=== PATIENT | male | born 1980 | race Caucasian/White ===

== ENCOUNTER 2023-09-05 01:02 | Emergency (ER) | payer SELFPAY ==
--- NOTE | 2023-09-05 01:20 | EDPHYS ---
Physician Documentation [facility] Name: Xiang Adams Age: 43 yrs Sex: Male : 1980 Arrival Date: 09/05/2023 Time: 01:02 Bed 7 Private MD: ED Physician Carlito Novak HPI: 09/04 01:48 This 43 yrs old Male presents to ER via Ambulatory with complaints of Abscess. rt 01:48 Patient presents to the ED with about 3 days of reported abscess to the right thigh rt proximal to the knee. Patient states that yesterday, he squeezed some pus out of it but reports continued swelling, pain to the area. Denies other acute complaints at this time, symptoms are mild in severity, no other aggravating or alleviating factors.. Historical: - Home Meds: 01:23 lisinopril 20 mg Oral tab 1 tab once daily [Active]; hydrochlorothiazide Oral [Active]; rg5 - PMHx: 01:23 Anxiety; Hypertension; rg5 - Immunization history:: Adult Immunizations up to date, Client reports receiving the 1st dose of the Covid vaccine. - Infectious Disease History:: Denies. - Social history:: Smoking status: Patient reports the use of cigarette tobacco products, smokes one pack cigarettes per day. - Family history:: not pertinent. ROS: 01:48 Constitutional: Negative for fever, chills, and weight loss, Cardiovascular: Negative rt for chest pain, palpitations, and edema, Respiratory: Negative for shortness of breath, cough, wheezing, and pleuritic chest pain, Abdomen/GI: Negative for abdominal pain, nausea, vomiting, diarrhea, and constipation, Neuro: Negative for headache, weakness, numbness, tingling, and seizure, 01:48 Skin: Positive for abscess, cellulitis, Exam: 01:48 Constitutional: This is a well developed, well nourished patient who is awake, alert, rt and in no acute distress. Head/Face: Normocephalic, atraumatic. Neuro: Awake and alert, GCS 15, oriented to person, place, time, and situation. Cranial nerves II-XII grossly intact. Motor strength 5/5 in all extremities. Sensory grossly intact. Cerebellar exam normal. Normal gait. 01:48 Musculoskeletal/extremity: Area of induration proximal to the right knee with surrounding erythema, no obvious fluctuance. Vital Signs: 01:17 BP 167 / 107; Pulse 96; Resp 18; Temp 98.7; Pulse Ox 97% ; Weight 88.45 kg; Height 5 rg5 ft. 8 in. ; Pain 9/10; 01:40 BP 154 / 94; Pulse 88; Resp 17; Pulse Ox 99% ; rg5 01:17 Body Mass Index 29.65 (88.45 kg, 172.72 cm) rg5 01:17 Pain Scale: Adult rg5 Procedures: 01:48 Ultrasound: Type: Skin, performed by the emergency department physician, No drainable rt abscess found on bedside ultrasound. MDM: 01:13 Patient medically screened. rt 01:48 Differential diagnosis: abscess, cellulitis. Data reviewed: vital signs, nurses notes. rt Test considered but Not performed: Labs: No signs of systemic infection, stable vital signs, labs not indicated. Care significantly affected by the following chronic conditions: Hypertension. 01:48 Counseling: I had a detailed discussion with the patient and/or guardian regarding the rt historical points, exam findings, and any diagnostic results supporting the discharge/admit diagnosis, the need for outpatient follow up, to return to the emergency department if symptoms worsen or persist or if there are any questions or concerns that arise at home. ED course: Patient able to bend knee without difficulties. No signs or symptoms to suggest a septic arthritis.. Administered Medications: 01:43 Drug: Doxycycline PO 100 mg PO once Route: PO; rg5 01:43 Follow up: Response: No adverse reaction rg5 Disposition Summary: 09/05/23 01:20 Discharge Ordered Notes: Location: Home rt Problem: new rt Symptoms: are unchanged rt Condition: Stable rt Diagnosis - Cellulitis to right lower extremity rt Followup: rt - With: Private Physician - When: 2 - 3 days - Reason: Discharge Instructions: - Discharge Summary Sheet rt - Cellulitis, Adult rt Forms: - Medication Reconciliation Form rt - Antibiotic Education rt - Prescription Opioid Use rt - Patient Portal Instructions rt - Leadership Thank You Letter rt Prescriptions: - Doxycycline Hyclate 100 mg Oral Tablet - take 1 tablet ORAL route every 12 hours; 20 tablet; Refills: 0, Product rt Selection Permitted Signatures: Carlito Novak MD MD rt Joselito Christian RN RN rg5
[2023-09-05] MEDS ORDERED: DOXYCYCLINE 100 MG CAP PO ONE (01:34)
--- NOTE | 2023-09-05 01:44 | ER ---
Nurse's Notes [facility] Name: Xiang Adams Age: 43 yrs Sex: Male : 1980 Arrival Date: 09/05/2023 Time: :02 Bed 7 Private MD: Diagnosis: Cellulitis to right lower extremity Presentation: 09/04 01:17 Chief complaint: Patient states: wake up yesterday with an insect bite on his right rg5 knee and had taken tylenol 500 mg tab \T\ benaryl for pain PATROLLER. Coronavirus screen: Vaccine status: Patient reports receiving the 1st dose of the Covid vaccine. Client denies travel out of the [place] in the last 14 days. Ebola Screen: Patient negative for fever greater than or equal to 101.5 degrees Fahrenheit, and additional compatible Ebola Virus Disease symptoms. Initial Sepsis Screen: Does the patient meet any 2 criteria? No. Patient's initial sepsis screen is negative. Does the patient have a suspected source of infection? No. Patient's initial sepsis screen is negative. Risk Assessment: Do you want to hurt yourself or someone else? Patient reports no desire to harm self or others. Onset of symptoms was September 04, 2023. 01:17 Method Of Arrival: Ambulatory rg5 01:17 Acuity: GURPREET 4 rg5 Triage Assessment: 01:23 General: Appears in no apparent distress. comfortable, Behavior is calm, cooperative, rg5 appropriate for age. Pain: Complains of pain in right quadriceps Pain does not radiate. Pain currently is 9 out of 10 on a pain scale. Quality of pain is described as aching, Pain began 4 hours ago. Is continuous. Neuro: Level of Consciousness is awake, alert, obeys commands, Oriented to person, place, time, situation. Cardiovascular: Capillary refill < 3 seconds. Respiratory: Airway is patent Trachea midline Respiratory effort is even, relaxed. GI: Abdomen is round. : No signs and/or symptoms were reported regarding the genitourinary system. Derm:. Musculoskeletal: Range of motion: intact in all extremities. Historical: - Home Meds: 01: lisinopril 20 mg Oral tab 1 tab once daily [Active]; hydrochlorothiazide Oral [Active]; rg5 - PMHx: :23 Anxiety; Hypertension; rg5 - Immunization history:: Adult Immunizations up to date, Client reports receiving the 1st dose of the Covid vaccine. - Infectious Disease History:: Denies. - Social history:: Smoking status: Patient reports the use of cigarette tobacco products, smokes one pack cigarettes per day. - Family history:: not pertinent. Screenin:29 [facility] ED Fall Risk Assessment (Adult) History of falling in the last 3 months, rg5 including since admission No falls in past 3 months (0 pts) Confusion or Disorientation No (0 pts) Intoxicated or Sedated No (0 pts) Impaired Gait No (0 pts) Mobility Assist Device Used No (0 pt) Altered Elimination No (0 pt) Score/Fall Risk Level 0 - 2 = Low Risk. Abuse screen: Denies threats or abuse. Nutritional screening: No deficits noted. Tuberculosis screening: No symptoms or risk factors identified. Vital Signs: 01:17 BP 167 / 107; Pulse 96; Resp 18; Temp 98.7; Pulse Ox 97% ; Weight 88.45 kg; Height 5 rg5 ft. 8 in. ; Pain 9/10; 01:40 BP 154 / 94; Pulse 88; Resp 17; Pulse Ox 99% ; rg5 01:17 Body Mass Index 29.65 (88.45 kg, 172.72 cm) rg5 01:17 Pain Scale: Adult rg5 ED Course: 01:05 Patient arrived in ED. mr 01:05 Carlito Novak MD is Attending Physician. rt 01:17 Joselito Christian, CRYSTAL is Primary Nurse. rg5 01:23 Triage completed. rg5 01:23 Arm band placed on right wrist. rg5 01:29 Patient has correct armband on for positive identification. Bed in low position. Call rg5 light in reach. Side rails up X 1. 01:29 No provider procedures requiring assistance completed. rg5 01:41 Patient did not have IV access during this emergency room visit. rg5 01:42 Provided Education on: post er care done. rg5 Administered Medications: :43 Drug: Doxycycline PO 100 mg PO once Route: PO; rg5 01:43 Follow up: Response: No adverse reaction rg5 Medication: :29 VIS not applicable for this client. rg5 Outcome: 01:20 Discharge ordered by MD. rt 01:41 Discharged to home ambulatory, rg5 01:41 Condition: stable 01:41 Discharge instructions given to patient, Instructed on discharge instructions, Demonstrated understanding of instructions, Prescriptions given X 1, 01:44 Patient left the ED. rg5 Signatures: Monserrat Hernández, Reg Reg mr Carlito Novak MD MD rt Joselito Christian, CRYSTAL RN rg5
[2023-09-05 02:15] VITALS: BP 154/94; TEMP 98.7; O2SAT 99
== END 2023-09-05 01:44 | disposition home or self-care (01) ==
LOC: ER 01:02
DX: L03.115 Cellulitis of right lower limb (principal)
CPT/HCPCS: 99283

== ENCOUNTER 2024-02-27 23:15 | Observation (INO) | payer OTHER, SELFPAY ==
--- OUTSIDE RECORDS SUMMARY | 2024-02-27 23:17 | XMS REPORT | Continuity of Care Document ---
Author Name Unknown Address [address] [facility] [address] [place] [address] [facility] thconnect Address [address] [facility] [place] [address] Care Team Providers Care Cafe Operator Name Role Phone Unavailable Unavailable Unavailable Encounters Start Date/Time End Date/Time Encounter Type Admission Type Attending Clinicians Care Facility Care Department Encounter ID Source 2022-12-27 16:58:03 2022-12-27 16:58:03 Outpatient [facility] SFA [id number] Chinedu Holder 2022-07-11 16:59:29 2022-07-11 16:59:29 Outpatient [facility] SFA [id number] Chinedu Holder 2021-12-05 10:44:03 2021-12-05 10:44:03 Outpatient [facility] SFA [id number] Chinedu Holder
[2024-02-28] MEDS ORDERED: lisinopriL 20 MG TAB ONE (00:02)
[2024-02-28] MEDS ORDERED: NA CHLORIDE 0.9% 1,000 ML ONE (00:02)
[2024-02-28] MEDS ORDERED: HYDRALAZINE HCL 20 MG/ML VIAL ONE (00:02)
[2024-02-28 00:18] LABS: MCH 28.5 pg (27.0-35.0); Nucleated Red Blood Cells % 0.2 % (0-0); Platelets 252 thou/uL (152-406); Red Cell Distribution Width 13.6 % (12.1-15.2)
[2024-02-28 00:20] LABS: PT Prothrombin Time 12.1 SECONDS (9.4-12.5); PTT, Activated Partial Thromb 32.5 SECONDS (24.3-36.9); Protime INR 1.08
[2024-02-28 00:22] LABS: Specific Gravity 1.015 (1.005-1.030); Sqamous Epithelial None Seen /HPF (None Seen); Urine Bacteria None Seen /HPF (<20); Urine Bilirubin NEGATIVE (Negative); Urine Blood Negative (Negative); Urine Clarity Clear (Clear); Urine Color Colorless (Yellow); Urine Culture Reflex Order NOT NEEDED; Urine Glucose NEGATIVE (Negative); Urine Ketones NEGATIVE (Negative); Urine Microscopic Reflex YN ORDER UMIC; Urine Mucus Slight /HPF (None Seen); Urine Nitrite NEGATIVE (Negative); Urine Protein NEGATIVE (Negative); Urine RBC <5 /HPF (None Seen); Urine Urobilinogen Normal (Normal); Urine WBC <5 /HPF (<5)
[2024-02-28 00:22] LABS: Absolute Basophils 0.1 K/uL (0-0.5); Absolute Eosinophils 0.3 K/uL (0-0.5); Absolute Lymphocytes (CBC) 3.7 K/uL (0.7-4.9); Absolute Monocytes 0.8 K/uL (0.1-1.3); Absolute Neutrophil 10.2 K/uL (1.8-8.0); Basophils % 0.4 % (0-1.3); Eosinophils % 1.9 % (0-4.4); Hematocrit 48.1 % (39.6-49.0); Lymphocytes % 24.9 % (15.3-44.8); MCHC 33.2 g/dL (32.0-36.0); MPV 8.2 fL (7.6-11.3); Monocytes % 5.4 % (3.3-12.3); Neutrophils % 67.4 % (41.7-73.7)
[2024-02-28 00:38] LABS: Albumin 3.4 g/dL (3.4-5.0); Albumin/Globulin Ratio 0.8 (1.1-1.8); Anion Gap 5.8 mEq/L (5.0-15.0); Bilirubin Total 0.7 mg/dL (0.2-1.0); Globulin 4.4 g/dL (2.3-3.5); Potassium 3.8 mEq/L (3.5-5.1); Protein, Total 7.8 g/dL (6.4-8.2); Troponin High Sensitivity 27.1 pg/mL (<58.9)
[2024-02-28] MEDS ORDERED: VANCOMYCIN 1 GM/VIAL ONE (01:33)
[2024-02-28] MEDS ORDERED: NA CHLORIDE 0.9% 250 ML ONE (01:34)
--- NOTE | 2024-02-28 01:49 | RAD REPORT ---
EXAMINATION: US UPPER EXTREMITY VEINS LIMITED FOLLOW-UP UNILATERAL INDICATION: Swelling; Pain COMPARISON(S): None. TECHNIQUE: Grayscale and color/spectral Doppler ultrasound of the right upper extremity veins. FINDINGS: There is normal flow and compressibility in the right internal jugular, subclavian, axillary, brachia l , basilic, radial and ulnar veins without intraluminal thrombus. Visualized waveforms demonstrate normal respiratory variability. Right cephalic vein is not visualized. IMPRESSION: 1. No deep venous thrombosis in the right upper extremity. 2. Nonvisualization of right cephalic vein. Electronically signed by: Valentina Perez MD 02/28/2024 01:45 AM [facility] Due to temporary technical issues with the [employer]ACS[employer] reporting system, reports are being signed by the in-house radiologist without review as a courtesy to ensure prompt reporting the interpreting radiologist is fully responsible for the content of the report. Transcribed Date/Time: 02/28/2024 1:49 AM
[2024-02-28] MEDS ORDERED: ACETAMINOPHEN 500 MG TAB ONE (03:50)
--- NOTE | 2024-02-28 03:57 | RAD REPORT ---
EXAM: CT chest angiography with intravenous contrast CLINICAL DATA: 44 years Male Chest pain;SOB. TECHNICAL DATA: Following the administration of intravenous contrast, multiple high-resolution axial images of the ch est were performed followed by sagittal and coronal reconstructed images. Coronal oblique, coronal and sagittal MIP images were also performed. The CT study is performed according to ALARA (as low as reasonably achievable) or ALARA/IMAGE GENTLY, with automatic adjustment of mA and/or kV according to patient size. Performed on: 02/28/2024 at 2:02 AM COMPARISONS: Chest x-ray performed on 02/28/2024 at 12:03 AM FINDINGS: There is satisfactory visualization and contrast opacification of pulmonary arteries. No definite i ntra-arterial filling defects are identified to suggest acute or chronic pulmonary embolism. The thoracic aorta is normal in caliber and contour without evidence of aneurysm or dissection. The lungs are well expanded and are clear. There is no evidence of a pneumothorax. There are no pleur al effusions. The central airways are patent. The heart is normal in size. There is no pericardial effusion. There is no reflux of contrast into th e hepatic veins to suggest right heart strain. There is questionable left ventricular hypertrophy. Left ventricular wall thickness measures approximately 2 cm. There is no evidence of hilar, mediastinal or axillary lymphadenopathy. There are couple of mildly pr ominent right axillary lymph nodes which are nonspecific. No acute osseous abnormality is identified. The visualized upper abdominal structures are unremarkable. IMPRESSION: 1. No evidence of acute or chronic pulmonary embolism, aortic aneurysm or aortic dissection. 2. No evidence of acute intrathoracic disease. 3. Questionable left ventricular hypertrophy. 4. There are a couple of mildly prominent right axillary lymph nodes which are nonspecific. Electronically signed by: Diamond Pelaez DO 02/28/2024 03:47 AM [facility] Due to temporary technical issues with the [employer]ACS[employer] reporting system, reports are being sasha d by the in-house radiologist without review as a courtesy to ensure prompt reporting the interpreting radiologist is fully responsible for the content of the report. Transcribed Date/Time: 02/28/2024 3:56 AM
--- NOTE | 2024-02-28 04:08 | ER ---
Nurse's Notes [facility] Name: Xiang Adams Age: 44 yrs Sex: Male : 1980 Arrival Date: 02/27/2024 Time: 23:15 Bed 13 Private MD: Diagnosis: Hypertensive Emergency ;Acute diastolic (congestive) heart failure;Acute right upper extremity edema Presentation: 02/26 23:28 Chief complaint: Patient states: c/o redness, warmth and swelling to medial aspect of me1 right elbow x3 days. Reports he has also felt sob and has fatigue. Coronavirus screen: Vaccine status: Patient reports receiving the 2nd dose of the covid vaccine. Ebola Screen: No symptoms or risks identified at this time. Initial Sepsis Screen: Does the patient meet any 2 criteria? HR > 90 bpm. Risk Assessment: Do you want to hurt yourself or someone else? Patient reports no desire to harm self or others. Onset of symptoms was February 24, 2024. 23:28 Method Of Arrival: Ambulatory [facility] 23:28 Acuity: GURPREET 3 me1 23:48 Initial Sepsis Screen: Does the patient have a suspected source of infection? No. kj2 Patient's initial sepsis screen is negative. Historical: - Allergies: 23:30 No Known Allergies; me1 - PMHx: 23:30 Anxiety; Hypertension; me1 - PSHx: 23:30 None; me1 - Immunization history:: Adult Immunizations up to date. - Infectious Disease History:: Denies. - Social history:: Smoking status: Patient reports the use of cigarette tobacco products, smokes one pack cigarettes per day. Screenin:47 [facility] ED Fall Risk Assessment (Adult) History of falling in the last 3 months, kj2 including since admission No falls in past 3 months (0 pts) Confusion or Disorientation No (0 pts) Intoxicated or Sedated No (0 pts) Impaired Gait No (0 pts) Mobility Assist Device Used No (0 pt) Altered Elimination No (0 pt) Score/Fall Risk Level 0 - 2 = Low Risk Maintained a safe environment, Hourly rounding (assess needs \T\ fall precautionary measures) done. Abuse screen: Denies threats or abuse. Denies injuries from another. Nutritional screening: No deficits noted. Tuberculosis screening: No symptoms or risk factors identified. Assessment: 23:46 General: Appears in no apparent distress. Behavior is calm, cooperative. Pain: kj2 Complains of pain in right elbow Pain currently is 5 out of 10 on a pain scale. Neuro: Level of Consciousness is awake, alert, obeys commands, Oriented to person, place, time, situation. Cardiovascular: Patient's skin is warm and dry. Respiratory: Airway is patent Respiratory effort is even, unlabored. GI: No signs and/or symptoms were reported involving the gastrointestinal system. : No signs and/or symptoms were reported regarding the genitourinary system. 02/27 00:46 Reassessment: Patient appears in no apparent distress at this time. Patient and/or kj2 family updated on plan of care and expected duration. Pain level reassessed. Patient is alert, oriented x 3, equal unlabored respirations, skin warm/dry/pink. 01:50 Reassessment: Patient appears in no apparent distress at this time. Patient and/or kj2 family updated on plan of care and expected duration. Pain level reassessed. Patient is alert, oriented x 3, equal unlabored respirations, skin warm/dry/pink. 03:00 Reassessment: Patient appears in no apparent distress at this time. Patient and/or kj2 family updated on plan of care and expected duration. Pain level reassessed. Patient is alert, oriented x 3, equal unlabored respirations, skin warm/dry/pink. 04:00 Reassessment: Patient appears in no apparent distress at this time. Patient and/or kj2 family updated on plan of care and expected duration. Pain level reassessed. Patient is alert, oriented x 3, equal unlabored respirations, skin warm/dry/pink. 05:00 Reassessment: Patient appears in no apparent distress at this time. Patient and/or kj2 family updated on plan of care and expected duration. Pain level reassessed. Patient is alert, oriented x 3, equal unlabored respirations, skin warm/dry/pink. 06:00 Reassessment: Patient appears in no apparent distress at this time. Patient and/or kj2 family updated on plan of care and expected duration. Pain level reassessed. Patient is alert, oriented x 3, equal unlabored respirations, skin warm/dry/pink. Vital Signs: 02/26 23:28 BP 171 / 122; Pulse 113; Resp 16; Temp 98.2; Pulse Ox 100% ; Weight 86.18 kg; Height 5 me1 ft. 8 in. ; Pain 04/13; 02/27 01:50 BP 155 / 98; Pulse 104; Resp 20; Pulse Ox 100% on R/A; kj2 03:00 BP 152 / 96; Pulse 100; Resp 18; Pulse Ox 100% on R/A; kj2 04:00 BP 154 / 94; Pulse 101; Resp 20; Pulse Ox 98% on R/A; kj2 05:00 BP 142 / 84; Pulse 90; Resp 20; Pulse Ox 100% on R/A; kj2 06:00 BP 148 / 86; Pulse 98; Resp 20; Pulse Ox 99% on R/A; kj2 02/26 23:28 Body Mass Index 28.89 (86.18 kg, 172.72 cm) [facility] 02/26 23:28 Pain Scale: Adult [facility] ED Course: 02/26 23:19 Patient arrived in ED. gm2 23:21 Brandt Mcelroy PA is PHCP. cp 23:21 Enoch Henley MD is Attending Physician. cp 23:30 Triage completed. me1 23:30 Arm band placed on Patient placed in an exam room. me1 23:40 EKG done, by ED staff, reviewed by Brandt QUIROZ. sa1 23:45 Regi Gimenez, RN is Primary Nurse. kj2 23:48 Patient has correct armband on for positive identification. Bed in low position. Call kj2 light in reach. Adult w/ patient. Provided Education on: call light. 23:50 Inserted saline lock: 20 gauge in left antecubital area, using aseptic technique. sa1 Flushed with 10 mL NS. 23:55 First set of blood cultures drawn by me. sa1 23:55 Initial lab(s) drawn, by vt, sent to lab. sa1 02/27 00:00 Urine collected: clean catch specimen, clear. sa1 00:10 Second set of blood cultures drawn by me. sa1 00:13 XRAY Chest (1 view) In Process Unspecified. EDMS 00:13 XRAY Elbow RIGHT 3 view In Process Unspecified. EDMS 00:36 UPPER EXTREMITY VENOUS UNILATE In Process Unspecified. EDMS 01:56 CT Chest For PE Angio In Process Unspecified. EDMS 02:19 Warm blanket given. sa1 04:06 Juanjose Malhotra MD is Hospitalizing Provider. sp4 06:04 No provider procedures requiring assistance completed. Patient admitted, IV remains in kj2 place. Administered Medications: 00:00 Drug: hydrALAZINE IVP 10 mg IVP once Route: IVP; Site: left antecubital; kj2 06:05 Follow up: Response: No adverse reaction kj2 00:13 Drug: NS 0.9% IV 1000 ml IV at 1000 ml once; to be given as a bolus over 60 minutes kj2 Route: IV; Rate: 1000 ml; Site: left antecubital; 00:13 Drug: Lisinopril PO 20 mg PO once Route: PO; kj2 06:04 Follow up: Response: No adverse reaction kj2 01:40 Drug: vancoMYCIN IVPB 1 grams IVPB once over 2 hrs Route: IVPB; Infused Over: 2 hrs; kj2 Site: left antecubital; 06:06 Follow up: IV Status: Completed infusion; IV Intake: 250ml kj2 03:53 Drug: Acetaminophen PO 1000 mg PO once Route: PO; cp4 06:04 Follow up: Response: No adverse reaction kj2 Medication: 02/26 23:48 VIS not applicable for this client. kj2 Intake: 02/27 06:06 IV: 250ml; Total: 250ml. kj2 Outcome: 04:07 Decision to Hospitalize by Provider. sp4 06:03 Admitted to Tele room 411, kj2 06:03 Condition: stable 06:03 Instructed on the need for admit, 06:06 Patient left the ED. kj2 Signatures: Dispatcher [employer] EDWI Brandt Mcelroy PA PA cp Potepalov, Sergey, MD MD sp4 Belkis Rolle RN RN me1 Luisa Lee cp4 Renetta Bauman 2 Sultan Lizzie sa1 Regi Gimenez, CRYSTAL RN kj2 Corrections: (The following items were deleted from the chart) 02/26 23:30 23:30 PSHx: Unable to Obtain; vt1 vt1 02/27 00:09 02/26 23:50 Inserted saline lock: 20 gauge in right antecubital area, using aseptic sa1 technique. Blood collected. Flushed with 10 mL NS sa1 02/27 00:09 00:05 Initial lab(s) drawn, by me, sent to lab. sa1 sa1 06:05 00:13 hydrALAZINE IVP 10 mg IVP in left antecubital kj2 kj2 06:05 06:04 Response: No adverse reaction kj2 kj2
--- NOTE | 2024-02-28 04:08 | EDPHYS ---
Physician Documentation [facility] Name: Xiang Adams Age: 44 yrs Sex: Male : 1980 Arrival Date: 02/27/2024 Time: 23:15 Bed 13 Private MD: ED Physician Enoch Henley HPI: 02/26 23:35 This 44 yrs old Male presents to ER via Ambulatory with complaints of Arm Pain, Rt arm cp swelling at elbow. 23:35 The patient or guardian complains of swelling, tenderness, erythema. The complaints cp affect the right elbow. Context: resulted from unknown cause. Onset: The symptoms/episode began/occurred 3 day(s) ago. Associated signs and symptoms: Pertinent positives:. 23:35 The patient has shortness of breath with light activity. cp 23:35 Associated signs and symptoms: Pertinent positives: intermittent chest pain, Pertinent cp negatives: diaphoresis, dizziness, nausea, vomiting. Historical: - Allergies: 23:30 No Known Allergies; me1 - PMHx: 23:30 Anxiety; Hypertension; me1 - PSHx: 23:30 None; me1 - Immunization history:: Adult Immunizations up to date. - Infectious Disease History:: Denies. - Social history:: Smoking status: Patient reports the use of cigarette tobacco products, smokes one pack cigarettes per day. ROS: 23:40 Constitutional: Negative for body aches, chills, fever, poor PO intake, cp 23:40 Eyes: Negative for injury, pain, redness, and discharge, cp 23:40 ENT: Negative for drainage from ear(s), ear pain, sore throat, difficulty swallowing, difficulty handling secretions, 23:40 Cardiovascular: Positive for chest pain, Negative for edema, palpitations, 23:40 Respiratory: Positive for shortness of breath, Negative for cough, wheezing, 23:40 Abdomen/GI: Negative for abdominal pain, vomiting, diarrhea, constipation, 23:40 MS/extremity: Positive for erythema, swelling, tenderness, of the right elbow, Negative for injury or acute deformity, decreased range of motion, 23:40 Neuro: Negative for dizziness, headache, numbness, syncope, weakness, 23:40 All other systems are negative, Exam: 23:45 ECG was reviewed by the Attending Physician. cp 23:47 Constitutional: The patient appears in no acute distress, alert, awake, cp non-diaphoretic, non-toxic, well developed, well nourished, 23:47 Head/Face: Normocephalic, atraumatic. cp 23:47 Eyes: Periorbital structures: appear normal, Conjunctiva: normal, no exudate, no injection, Sclera: no appreciated abnormality, Lids and lashes: appear normal, bilaterally, 23:47 ENT: External ear(s): are unremarkable, Nose: is normal, Mouth: Lips: moist, Oral mucosa: moist, Posterior pharynx: Airway: no evidence of obstruction, patent, 23:47 Neck: ROM/movement: is normal, is supple, without pain, no range of motions limitations, 23:47 Chest/axilla: Inspection: normal, 23:47 Cardiovascular: Rate: tachycardic, Rhythm: regular, JVD: is not appreciated, 23:47 Respiratory: the patient does not display signs of respiratory distress, Respirations: normal, no use of accessory muscles, no retractions, labored breathing, is not present, Breath sounds: are clear throughout, no decreased breath sounds, no stridor, no wheezing, 23:47 Abdomen/GI: Inspection: abdomen appears normal, Palpation: abdomen is soft and non-tender, in all quadrants, 23:47 Musculoskeletal/extremity: Extremities: noted in the right elbow: erythema, swelling, tenderness, There is no evidence of decreased ROM, ROM: limited passive range of motion due to pain, in the right elbow, Pulses: noted to be 2+ in the right radial artery, 23:47 Skin: cellulitis, well demarcated, on the right elbow, 23:47 Neuro: Orientation: to person, place \T\ time. Mentation: is normal, Motor: moves all fours, strength is normal, Vital Signs: 23:28 BP 171 / 122; Pulse 113; Resp 16; Temp 98.2; Pulse Ox 100% ; Weight 86.18 kg; Height 5 me1 ft. 8 in. ; Pain 04/13; 02/27 01:50 BP 155 / 98; Pulse 104; Resp 20; Pulse Ox 100% on R/A; kj2 03:00 BP 152 / 96; Pulse 100; Resp 18; Pulse Ox 100% on R/A; kj2 04:00 BP 154 / 94; Pulse 101; Resp 20; Pulse Ox 98% on R/A; kj2 05:00 BP 142 / 84; Pulse 90; Resp 20; Pulse Ox 100% on R/A; kj2 06:00 BP 148 / 86; Pulse 98; Resp 20; Pulse Ox 99% on R/A; kj2 02/26 23:28 Body Mass Index 28.89 (86.18 kg, 172.72 cm) me1 02/26 23:28 Pain Scale: Adult me1 MDM: 02/26 23:21 Medical Screening Exam initiated cp 02/27 03:59 ED course: EXAM: CT chest angiography with intravenous contrast CLINICAL DATA: 44 years sp4 Male Chest pain;SOB. TECHNICAL DATA: Following the administration of intravenous contrast, multiple high-resolution axial images of the chest were performed followed by sagittal and coronal reconstructed images. Coronal oblique, coronal and sagittal MIP images were also performed. The CT study is performed according to ALARA (as low as reasonably achievable) or ALARA/IMAGE GENTLY, with automatic adjustment of mA and/or kV according to patient size. Performed on: 02/28/2024 at 2:02 AM COMPARISONS: Chest x-ray performed on 02/28/2024 at 12:03 AM FINDINGS: There is satisfactory visualization and contrast opacification of pulmonary arteries. No definite intra-arterial filling defects are identified to suggest acute or chronic pulmonary embolism. The thoracic aorta is normal in caliber and contour without evidence of aneurysm or dissection. The lungs are well expanded and are clear. There is no evidence of a pneumothorax. There are no pleural effusions. The central airways are patent. The heart is normal in size. There is no pericardial effusion. There is no reflux of contrast into the hepatic veins to suggest right heart strain. There is questionable left ventricular hypertrophy. Left ventricular wall thickness measures approximately 2 cm. There is no evidence of hilar, mediastinal or axillary lymphadenopathy. There are couple of mildly prominent right axillary lymph nodes which are nonspecific. No acute osseous abnormality is identified. The visualized upper abdominal structures are unremarkable. IMPRESSION: 1. No evidence of acute or chronic pulmonary embolism, aortic aneurysm or aortic dissection. 2. No evidence of acute intrathoracic disease. 3. Questionable left ventricular hypertrophy. 4. There are a couple of mildly prominent right axillary lymph nodes which are nonspecific. Electronically signed by: Diamond Pelaez DO 02/28/2024 03:47 AM . 04:01 ED course: EXAMINATION: US UPPER EXTREMITYVEINS LIMITED FOLLOW-UP UNILATERAL sp4 INDICATION: Swelling; Pain COMPARISON(S): None. TECHNIQUE: Grayscale and color/spectral Doppler ultrasound of the right upper extremity veins. FINDINGS: There is normal flow and compressibility in the right internal jugular, subclavian, axillary, brachial , basilic, radial and ulnar veins without intraluminal thrombus. Visualized waveforms demonstrate normal respiratory variability. Right cephalic vein is not visualized. IMPRESSION: 1. No deep venous thrombosis in the right upper extremity. 2. Nonvisualization of right cephalic vein.. ED course: EXAMINATION: US UPPER EXTREMITYVEINS LIMITED FOLLOW-UP UNILATERAL INDICATION: Swelling; Pain COMPARISON(S): None. TECHNIQUE: Grayscale and color/spectral Doppler ultrasound of the right upper extremity veins. FINDINGS: There is normal flow and compressibility in the right internal jugular, subclavian, axillary, brachial , basilic, radial and ulnar veins without intraluminal thrombus. Visualized waveforms demonstrate normal respiratory variability. Right cephalic vein is not visualized. IMPRESSION: 1. No deep venous thrombosis in the right upper extremity. 2. Nonvisualization of right cephalic vein. Electronically signed by: Valentina Perez MD 02/28/2024 01:45 AM. ED course: EXAM DESCRIPTION: Elbow Right 3 View CLINICAL HISTORY: 44 years Male, Pain;Swelling COMPARISON: None. IMPRESSION: No fracture or dislocation. Joint spaces are preserved. No joint effusion. Soft tissue swelling overlying the olecranon. . ED course: EXAM DESCRIPTION: X-ray single view chest. CLINICAL HISTORY: 44 years Male, SOB COMPARISON: None. TECHNIQUE: Single portable x-ray view of the chest performed on 02/28/2024 at 12:03 AM FINDINGS: The lungs are well expanded and are clear. There is no evidence of a pneumothorax. The cardiac silhouette is normal in size and configuration. The mediastinal contours are normal. No acute osseous abnormality is identified. No focal soft tissue abnormalities are seen. Lines and tubes: None. Free air: None identified, IMPRESSION: No evidence of acute intrathoracic disease. . 04:04 Differential diagnosis: dislocation, open fracture, contusion, abrasion, tendonitis. sp4 Data reviewed: vital signs, nurses notes, lab test result(s), CBC, electrolytes, hepatic panel, EKG, radiologic studies. Consideration of Admission/Observation Escalation of care including admission/observation considered. ED course: Patient has negative CT PE angiography. Stable for admission. 02/26 23:33 Order name: CBC with Diff; Complete Time: 00:36 02/27 00:36 Interpretation: Normal except: WBC 15.10; RBC 5.60; NEUT A 10.2. 02/26 23:33 Order name: Magnesium; Complete Time: 00:53 02/26 23:33 Order name: NT PRO-BNP; Complete Time: 00:53 02/27 00:58 Interpretation: NT PRO-BNP 4326; Reviewed. 02/26 23:33 Order name: PT-INR; Complete Time: 00:36 02/26 23:33 Order name: Troponin HS; Complete Time: 00:53 02/27 00:54 Interpretation: Reviewed. 02/26 23:33 Order name: Blood Culture Adult (2) 02/26 23:33 Order name: CMP; Complete Time: 00:53 02/27 00:58 Interpretation: Normal except: GLUC 122; BUN 19; GFR 73; GLOB 4.4. 02/26 23:33 Order name: Lactate w/ 2H reflex if indic.; Complete Time: 00:53 02/26 23:33 Order name: Ptt, Activated; Complete Time: 00:36 02/26 23:33 Order name: Urinalysis w/ reflexes; Complete Time: 00:36 02/27 00:54 Interpretation: Reviewed. 02/27 04:38 Order name: Urinalysis w/ reflexes EDME 02/27 04:38 Order name: CBC with Automated Diff EDME 02/27 04:38 Order name: CBC with Automated Diff EDME 02/27 04:38 Order name: Comprehensive Metabolic Panel EDME 02/27 04:38 Order name: Comprehensive Metabolic Panel EDME 02/26 23:33 Order name: XRAY Chest (1 view) 02/26 23:33 Order name: XRAY Elbow RIGHT 3 view 02/27 00:36 Order name: UPPER EXTREMITY VENOUS UNILATE EDME 02/27 01:28 Order name: CT Chest For PE Angio 02/26 23:33 Order name: EKG; Complete Time: 23:34 02/26 23:33 Order name: Cardiac monitoring; Complete Time: 01:43 02/26 23:33 Order name: EKG - Nurse/Tech; Complete Time: 00:13 02/26 23:33 Order name: IV Saline Lock; Complete Time: 01:43 cp 02/26 23:33 Order name: Labs collected and sent; Complete Time: :43 cp 02/26 23:33 Order name: O2 Per Protocol; Complete Time: 01:43 cp 02/26 23:33 Order name: O2 Sat Monitoring; Complete Time: 01:43 cp 02/26 23:33 Order name: Accucheck; Complete Time: 01:42 cp 02/26 23:33 Order name: IV Saline Lock - Large Bore; Complete Time: 01:42 cp 02/26 23:33 Order name: Vital Signs; Complete Time: :42 cp EC/26 23:45 Rate is 107 beats/min. Rhythm is regular. VA interval is normal. QRS interval is cp normal. QT interval is normal. T waves are Inverted in lead aVR. Interpreted by me. Reviewed by me. Administered Medications: 02/27 00:00 Drug: hydrALAZINE IVP 10 mg IVP once Route: IVP; Site: left antecubital; kj2 06:05 Follow up: Response: No adverse reaction kj2 00:13 Drug: NS 0.9% IV 1000 ml IV at 1000 ml once; to be given as a bolus over 60 minutes kj2 Route: IV; Rate: 1000 ml; Site: left antecubital; 00:13 Drug: Lisinopril PO 20 mg PO once Route: PO; kj2 06:04 Follow up: Response: No adverse reaction kj2 01:40 Drug: vancoMYCIN IVPB 1 grams IVPB once over 2 hrs Route: IVPB; Infused Over: 2 hrs; kj2 Site: left antecubital; 06:06 Follow up: IV Status: Completed infusion; IV Intake: 250ml kj2 03:53 Drug: Acetaminophen PO 1000 mg PO once Route: PO; cp4 06:04 Follow up: Response: No adverse reaction kj2 Disposition: 03:59 Co-signature as Attending Physician, Enoch Henley MD I agree with the assessment sp4 and plan of care. I reviewed the patient's care provided by Advanced Practice Provider \T\ agree w/ the diagnosis \T\ care plan. I personally saw the pt \T\ performed a substantive portion of the visit, incldng all aspects of the (History/Exam/Medical Decision Making). Disposition Summary: 02/28/24 04:07 Hospitalization Ordered Notes: Hospitalization Status: Inpatient Admission sp4 Provider: Juanjose Malhotra sp4 Location: Telemetry/MedSurg (Inpatient) sp4 Condition: Stable sp4 Problem: new sp4 Symptoms: have improved sp4 Bed/Room Type: Standard sp4 Room Assignment: 411(02/28/24 04:40) vk Diagnosis - Hypertensive Emergency sp4 - Acute diastolic (congestive) heart failure sp4 - Acute right upper extremity edema sp4 Forms: - Medication Reconciliation Form sp4 - SBAR form sp4 - Leadership Thank You Letter sp4 Signatures: Dispatcher [employer] EDMS Brandt Mcelroy PA PA cp Able, Lacie, RN RN lg3 Enoch Henley MD MD sp4 Belkis Rolle RN RN me1 Luisa Lee cp4 Catina Klein Krystal, RN RN kj2 Corrections: (The following items were deleted from the chart) 02/26 23:30 23:30 PSHx: Unable to Obtain; me1 me1 23:34 23:34 CBC+H.LAB.BRZ ordered. EDMS EDMS 23:34 23:34 MAGNESIUM+C.LAB.BRZ ordered. EDMS EDMS 23:34 23:34 PROBNP+C.LAB.BRZ ordered. EDMS EDMS 23:34 23:34 PROTIME (+INR)+COAG.LAB.BRZ ordered. EDMS EDMS 23:34 23:34 Troponin High Sensitivity+C.LAB.BRZ ordered. EDMS EDMS 23:34 23:34 BLOOD CULTURE*+BA.LAB.BRZ ordered. EDMS EDMS 23:34 23:34 COMPREHENSIVE METABOLIC PANEL+C.LAB.BRZ ordered. EDMS EDMS 23:34 23:34 LACTATE+C.LAB.BRZ ordered. EDMS EDMS 23:34 23:34 PTT, ACTIVATED+COAG.LAB.BRZ ordered. EDMS EDMS 23:34 23:34 Urinalysis+U.LAB.BRZ ordered. EDMS EDMS 02/27 00:36 02/26 23:34 Extremity Venous Uni Ltd+US.RAD.BRZ ordered. EDMS EDMS 02/27 01:28 01:28 Chest For PE Angio+CT.RAD.BRZ ordered. EDMS EDMS 04:40 04:07 sp4 vk
--- NOTE | 2024-02-28 04:33 | P.HP ---
Certification for Inpatient Patient admitted to: Observation With expected LOS: <2 Midnights Practitioner: I am a practitioner with admitting privileges, knowledge of patient current condition, hospital course, and medical plan of care. Services: Services provided to patient in accordance with Admission requirements found in Title 42 Section 412.3 of the Code of Federal Regulations Patient History Date of Service: 02/28/24 Reason for admission: Right arm pain , Elbow pain History of Present Illness: 44 yrs old Male with past medical history of anxiety, hypertension who was brought to ER with complaints of Arm Pain, Rt arm swelling at elbow. Started 3 days ago. Denies any trauma. Pain is started on right elbow associated with swelling, erythema. Patient also complains of chest discomfort and shortness of breath even with minimal activities associated with intermittent chest pain. Denies any nausea vomiting or diarrhea. No fever or chills. Patient was assessed in the ER and was admitted for further management. Allergies No Known Allergies Allergy (Unverified 07/21/11 16:15) Home medications list reviewed: Yes - Past Medical/Surgical History Past Medical History: Reviewed- Non-Contributory -: HTN, Anxiety Past Surgical History: Reviewed- Non-Contributory - Family History Family History: Reviewed- Non-Contributory - Social History Smoking Status: Never smoker Review of Systems 10-point ROS is otherwise unremarkable Physical Examination - Physical Exam General: Alert, In no apparent distress, Oriented x3 HEENT: Atraumatic, Normocephalic Neck: Supple, No LAD Respiratory: Clear to auscultation bilaterally, Normal air movement Cardiovascular: Regular rate/rhythm, Normal S1 S2 Capillary refill: <2 Seconds Gastrointestinal: Soft and benign, W/out hepatosplenomegaly Musculoskeletal: No clubbing, Erythema, Tenderness, Warmth Integumentary: No rashes Neurological: Normal speech, Normal strength at 5/5 x4 extr Lymphatics: No axilla or inguinal lymphadenopathy - Studies Laboratory Data (last 24 hrs) 02/27/24 02/27/24 02/27/24 23:55 23:55 23:55 WBC 15.10 H Hgb 16.0 Hct 48.1 Plt Count 252 PT 12.1 INR 1.08 APTT 32.5 Sodium 137 Potassium 3.8 BUN 19 H Creatinine 1.26 Glucose 122 H Magnesium 2.0 Total Bilirubin 0.7 AST 23 ALT 48 Alkaline Phosphatase 69 Assessment and Plan - Plan Right elbow cellulitis To treat of olecranon bursitis Pain control Antibiotics X-ray showing no acute changes Intermittent chest pain Will trend cardiac enzymes Will monitor telemetry Started on aspirin and statin Will get an echocardiogram Cardiology consult if cardiac enzymes are elevated Acute CHF possibly systolic/diastolic Monitor closely on telemetry Started on diuresis Echocardiogram ordered Accelerated hypertension Continue home medications and titrate as needed Hydralazine as needed GI/DVT prophylaxis Advanced directive full code Discharge Plan: Home Plan to discharge in: 24 Hours - Advance Directives Does patient have a Living Will: No Does patient have a Durable POA for Healthcare: No - Code Status/Comfort Care Code Status: Full Code Time Spent Managing Pts Care (In Minutes): 64
[2024-02-28] MEDS ORDERED: IPRATROPIUM BROM 0.5MG/2.5ML NEB PRN (04:34)
[2024-02-28] MEDS ORDERED: ONDANSETRON 4 MG/2 ML VIAL IV PRN (04:34)
[2024-02-28] MEDS ORDERED: ACETAMINOPHEN 325 MG TABLET PO PRN (04:34)
[2024-02-28] MEDS ORDERED: ALBUTEROL 2.5 MG/3 ML NEB SOL NEB PRN (04:34)
[2024-02-28] MEDS ORDERED: HYDRALAZINE HCL 20 MG/ML VIAL IV PRN (05:26)
[2024-02-28] MEDS: CEPHALEXIN 250 MG CAP PO SCH ×2 (06:00→09:24)
--- NOTE | 2024-02-28 06:11 | RAD REPORT ---
EXAM DESCRIPTION: X-ray single view chest. CLINICAL HISTORY: 44 years Male, SOB COMPARISON: None. TECHNIQUE: Single portable x-ray view of the chest performed on 02/28/2024 at 12:03 AM FINDINGS: The lungs are well expanded and are clear. There is no evidence of a pneumothorax. The cardiac silhouette is normal in size and configuration. The mediastinal contours are normal. No acute osseous abnormality is identified. No focal soft tissue abnormalities are seen. Lines and tubes: None. Free air: None identified, IMPRESSION: No evidence of acute intrathoracic disease. Electronically signed by: Diamond Pelaez DO 02/28/2024 01:15 AM [facility] Due to temporary technical issues with the PACS[employer] reporting system, reports are being sasha d by the in-house radiologist without review as a courtesy to ensure prompt reporting the interpreting radiologist is fully responsible for the content of the report. Transcribed Date/Time: 02/28/2024 6:11 AM
--- NOTE | 2024-02-28 06:11 | RAD REPORT ---
EXAM DESCRIPTION: Elbow Right 3 View CLINICAL HISTORY: 44 years Male, Pain;Swelling COMPARISON: None. IMPRESSION: No fracture or dislocation. Joint spaces are preserved. No joint effusion. Soft tissue swelling overlying the olecranon. Electronically signed by: Jose Salazar DO 02/28/2024 01:15 AM [facility] 9 Due to temporary technical issues with the [employer]ACS[employer] reporting system, reports are being sasha d by the in-house radiologist without review as a courtesy to ensure prompt reporting the interpreting radiologist is fully responsible for the content of the report. Transcribed Date/Time: 02/28/2024 6:11 AM
[2024-02-28 06:29] LABS: C-Reactive Protein 55.9 mg/L (<3.00); Uric Acid 5.6 mg/dL (3.5-7.2)
[2024-02-28] MEDS: CELECOXIB 100 MG CAPSULE PO SCH (06:31)
[2024-02-28] MEDS: FUROSEMIDE 20 MG/ 2ML VIAL IV SCH (09:25)
[2024-02-28] MEDS: ASPIRIN EC 81 MG TAB PO SCH (09:25)
[2024-02-28] MEDS: FAMOTIDINE 20 MG TAB PO SCH (09:25)
[2024-02-28] MEDS: ENOXAPARIN 40 MG/0.4 ML SQ SCH (09:25)
[2024-02-28] MEDS: HYDROCORTISONE SUC 100 MG INJ IV ONE (12:45)
[2024-02-28] MEDS: AMPICILLIN/SULBACT 3 GM in NA CHLORIDE 0.9% 100 ML IVPB SCH (12:46)
[2024-02-28] MEDS: VANCOMYCIN 1.5 GM in NA CHLORIDE 0.9% 500 ML IVPB SCH (12:52)
--- NOTE | 2024-02-28 13:36 | EKG ---
Test Date: 2024-02-27 Test Time: 23:39:46 [employer]: MEASUREMENT RESULTS: Intervals: Rate: 107 AK: 162 QRSD: 92 QT: 344 QTc: 459 [place]: P: 52 AK: 162 QRS: 120 T: 40 INTERPRETIVE STATEMENTS: Sinus tachycardia Left posterior fascicular block Abnormal ECG Compared to ECG 11/16/2001 23:33:00 Left posterior fascicular block now present Sinus rhythm no longer present Ventricular premature complex(es) no longer present Electronically Signed On 02-28-24 13:35:39 [employer] REPAIRER by Nir Serrato
[2024-02-28 19:57] VITALS: BMI 28.8
[2024-02-28] MEDS: ATORVASTATIN 40 MG TAB PO SCH (20:50)
[2024-02-29 05:29] LABS: Absolute Basophils 0.1 K/uL (0-0.5); Absolute Eosinophils 0.4 K/uL (0-0.5); Absolute Neutrophil 8.6 K/uL (1.8-8.0); Eosinophils % 2.4 % (0-4.4); Hematocrit 49.3 % (39.6-49.0); Hemoglobin 16.6 g/dL (13.6-17.9); Lymphocytes % 32.8 % (15.3-44.8); MCH 28.7 pg (27.0-35.0); MCHC 33.7 g/dL (32.0-36.0); MCV 85.1 fL (80-100); MPV 8.1 fL (7.6-11.3); Monocytes % 6.9 % (3.3-12.3); Neutrophils % 56.9 % (41.7-73.7); Nucleated Red Blood Cells % 0.1 % (0-0); Platelets 266 thou/uL (152-406); RBC Red Blood Cell Count 5.79 M/uL (4.33-5.43); Red Cell Distribution Width 13.5 % (12.1-15.2)
[2024-02-29 05:47] LABS: Albumin/Globulin Ratio 0.8 (1.1-1.8); Anion Gap 8.8 mEq/L (5.0-15.0); Bilirubin Total 0.4 mg/dL (0.2-1.0); Potassium 3.8 mEq/L (3.5-5.1)
[2024-02-29 08:24] VITALS: TEMP 97.9
[2024-02-29 10:01] VITALS: O2SAT 98
[2024-02-29] MEDS ORDERED: ALBUTEROL 2.5 MG/3 ML NEB SOL NEB PRN (10:30)
[2024-02-29] MEDS: METOPROLOL TAR 50 MG TAB PO ONE (10:55)
[2024-02-29 10:57] VITALS: BP 156/98
== END 2024-02-29 11:46 | disposition home or self-care (01) ==
LOC: ER 23:15 → 4TH 02-28 04:34
PROVIDERS: ADMIT Family Medicine; ATTEND Hospitalist
DX: I50.31 Acute diastolic (congestive) heart failure (principal); I16.1 Hypertensive emergency; L03.113 Cellulitis of right upper limb; F41.9 Anxiety disorder, unspecified; I10 Essential (primary) hypertension; R06.02 Shortness of breath; R07.9 Chest pain, unspecified; R94.31 Abnormal electrocardiogram [ECG] [EKG]; F17.210 Nicotine dependence, cigarettes, uncomplicated; M25.521 Pain in right elbow
CPT/HCPCS: 96365; 93005; 93306; 87040 ×2; 85025 ×2; 81001; 36415 ×2; 83735; 85610; 84550; 83605; 85730; 84484 ×3; 80053 ×2; 83880; 86140; 71275; 71045; 73080; 93971; 94760 ×3; 96375; 99285; 96366; Q9967; J0360; J1940 ×3; J1650 ×2; J1720; J0295 ×4; J7050; J7040; J7030; G0378